=== PATIENT | female | born 1995 | race Caucasian/White ===

== ENCOUNTER 2018-12-12 08:18 | Inpatient (IN) ==
[2018-12-12] MEDS ORDERED: Ondansetron ODT 4 MG TAB.RAPDIS SL PRN (08:57)
[2018-12-12 09:06] LABS: Amphetamine Screen,Urine Negative ng/mL (Cutoff=1000); Barbiturate Screen,Urine Negative ng/mL (Cutoff=200); Benzodiazepines Screen,Urine Negative ng/mL (Cutoff=200); Cannabinoid Screen,Urine Negative ng/mL (Cutoff = 50); Cocaine Screen,Urine Negative ng/mL (Cutoff= 300); Opiate Screen,Urine Negative ng/mL (Cutoff=300); Phencyclidine Screen,Urine Negative ng/mL (Cutoff=25)
[2018-12-12] MEDS ORDERED: Ringers Solution, Lactated 1,000 ML IVC ONE (09:55)
[2018-12-12] MEDS ORDERED: Ringers Solution, Lactated 1,000 ML ONE (09:56)
[2018-12-12] MEDS ORDERED: Famotidine 20 MG/2 ML VIAL IVP PRN ×2 (10:57→17:32)
[2018-12-12] MEDS ORDERED: Ondansetron 4 MG/2 ML VIAL IVP PRN (10:57)
[2018-12-12] MEDS ORDERED: Metoclopramide 10 MG/2 ML VIAL IVP PRN (10:57)
[2018-12-12] MEDS ORDERED: Naloxone 0.4 MG/ML INJ IVP PRN (10:57)
[2018-12-12] MEDS ORDERED: Ringers Solution, Lactated 1,000 ML IVC SCH (11:00)
[2018-12-12] MEDS ORDERED: Oxytocin 20 units/ LR 1000 mL 20 UNIT/1,000 ML BAG IVC SCH (11:00)
[2018-12-12] MEDS ORDERED: Acetaminophen 325 MG TABLET PO PRN (11:01)
[2018-12-12 11:12] LABS: Basophils % 0.2 %; Eosinophils % 0.2 %; Hematocrit 32.8 % (35.3-44.9); Immature Granulocytes % 0.6 % (0-4); Lymphocytes # 0.7 K/mcL (0.6-4.6); Lymphocytes % 5.2 %; Mean Corpuscular HGB Conc 30.5 g/dL (31.6-35.5); Mean Corpuscular Hemoglobin 26.8 pg (28.0-33.3); Mean Corpuscular Volume 87.9 fL (83.0-100.0); Mean Platelet Volume 10.3 fL (9.4-12.4); Monocytes # 0.7 K/mcL (0.0-1.3); Monocytes % 5.1 %; Neutrophils # 12.5 K/mcL (1.6-8.9); Platelet Count 335 K/mcL (140-400); Red Blood Count 3.73 M/mcL (3.82-4.97); Red Cell Distribution Width 13.9 % (11.5-14.5); Segmented Neutrophils % 88.7 %
[2018-12-12] MEDS: miSOPROStol 25 MCG TABLET PO PRN ×2 (11:42→16:09)
--- NOTE | 2018-12-12 12:15 | OB/GYN History & Physical ---
Date of Encounter: 12/12/18 Time of Encounter: 12:09 Assessment and Plan (1) 39 weeks gestation of Current visit: Yes Status: Acute Admit for IOL at 39w4d due to tachycardia. Dr. Leblanc consulted for plan of care. (2) tachycardia Current visit: Yes Status: Acute Admit for IOL (3) Blood type O- Current visit: Yes Status: Acute Collect cord blood at time of delivery History of Present Illness Chief complaint: IOL at 39w4d HPI: Ms. Santillan is a 23 year old female at 39w4d who presented to L&D with complaint of contractions, nausea, vomiting and diarrhea since yesterday. She reports positive movement, denies vaginal leakage and bleeding and reports irregular contractions. Upon admission, the FHR was 160 bpm but has increased to a baseline of 170-[address] Leblanc was on the unit and consulted for plan of care. Advised to admit for induction of labor due to term and tachycardia. She receives her care with Dr. Camarena and has an uncomplicated . Blood Type O negative GBS negative HBSAG negative HIV negative RPR negative Hep C Negative Rubella Equivocal Varicella Immune Past Med Surg Social Fam HX - Past Medical History Medical history: kidney stones Psychiatric history: no psych history - Past Surgical History Surgical History: no surgical history - Social History Smoking Status: Never smoker Alcohol use: none Drug use: none - Family History Mother Adopted: No Family Member Ethnicity: Non- Living Status: Still Living Hx Family Cardiac Disorders: No Hx Family Respiratory Disorders: No Hx Family Cancer: No Hx Family GI Disorders: No Hx Family Genitourinary Disorders: No Hx Family Endocrine Disorder: No Hx Family Musculoskeletal Disorders: No Hx Family Neuromuscular Disorders: No Hx Family Neurologic Disorders: No Hx Family HEENT Disorders: No Hx Family Autoimmune Disorders: No Hx Family Reproductive Disorders: No Hx Family Psychosocial Disorders: No Hx Family Medical Disorders: No Obstetrical History - Pregnancies : 1 Para: 0 Term: 0 : 0 Ab's: 0 Livin Medications and Allergies No Known Home Drugs 12/12/18 [History] Allergy/AdvReac Type Severity Reaction Status Date / Time No Known Allergies Allergy Verified 03/31/16 00:34 Exam - Constitutional Constitutional: well developed, well nourished, no acute distress, average body habitus - HEENT HEENT: Normocephaly - Neck Neck exam: full ROM, normal inspection - Lungs Respiratory exam: CTAB - Cardiovascular Cardiovascular exam: RRR, +S1, +S2 - Breasts Breast: bilateral: normal - Abdomen Abdomen: Present: bowel sounds normal, gravid, non tender - Extremities Extremities exam: full ROM, normal capillary refill, normal inspection - Vulva Vulva: bilateral: normal - Vagina Vagina: Present: normal moisture - Cervix Dilation: 1 Effacement: 80 (OB exam 12/11/18) Station: -3 - Uterus Uterus exam: Present: normal size - Comments Comments: Discussed IOL options with patient. Reviewed PO Cytotec, cervical ceron balloon. Patient is agreeable to the Cytotec at this time, she is unsure if she wants to do the ceron balloon yet. She may agree to that after an epidural is placed. She states she is very nervous about the thought of the ceron placement. Patient was encouraged to make the decision she feels is right for her and we can reassess after she receives an epidural. Results Result Diagrams: 12/12/18 10:10 Abnormal lab results WBC 14.1 K/mcL (4.3-11.1) H 12/12/18 10:10 RBC 3.73 M/mcL (3.82-4.97) L 12/12/18 10:10 Hgb 10.0 g/dL (11.5-15.4) L 12/12/18 10:10 Hct 32.8 % (35.3-44.9) L 12/12/18 10:10 MCH 26.8 pg (28.0-33.3) L 12/12/18 10:10 MCHC 30.5 g/dL (31.6-35.5) L 12/12/18 10:10 12.5 K/mcL (1.6-8.9) H 12/12/18 10:10 All other labs normal. - VTE Reasons for not Prescribing Prophylaxis: Treatment not Indicated - Low risk for VTE
[2018-12-12] MEDS: *HR* Nalbuphine 10 MG/ML AMPUL IVP PRN ×2 (16:05→18:13)
--- NOTE | 2018-12-12 16:25 | OB Labor Progress Note ---
Date of Encounter: 12/12/18 Time of Encounter: 16:19 Labor Progress Note - Subjective Subjective: Patient very anxious about pain associated with cervical ceron placement. Several family members at bedside for support. - Vital Signs Vital Signs: WNL, afebrile - Cervix Cervix: 1/80/-2 - Heart Tones Heart Tones: FHR 145 bpm, moderate variability, +15x15 accels, no decels. - [place]: Irregular contractions - Interventions Interventions: SVE Again discussed option of inserting cervical ceron. Patient is agreeable to try this once she has some pain medication to help her anxiety. Nubain given and cervical ceron inserted without difficulty. 60 mL sterile water instilled into uterine balloon, 20 mL sterile water instilled into vaginal balloon. Patient tolerated with minimal discomfort. - Plan Plan: Give second dose of Cytotec po Recheck in cervix in 4 hours. May have epidural when she requests Anticipate
[2018-12-12] MEDS ORDERED: Epidural Premix (fent/bupiv) 110 ML EP ONE (20:39)
[2018-12-12] MEDS ORDERED: *HR* FentaNYL (PF) 100 MCG/2 ML VIAL ONE (20:40)
[2018-12-12] MEDS ORDERED: Bupivacaine-MPF 0.25% 10 ML VIAL ONE (20:41)
--- NOTE | 2018-12-12 20:43 | OB Labor Progress Note ---
Date of Encounter: 12/12/18 Time of Encounter: 20:41 Labor Progress Note - Subjective Subjective: Patient is able to rest at intervals. She has multiple family members at bedside for support. - Vital Signs Vital Signs: WNL, pulse rate currently elevated due to patient being nervous about epidural placement. - Cervix Cervix: 5/50/-2 - Heart Tones Heart Tones: FHR 150 bpm, moderate variability, +15x15 accels, no decels. - B And E B And E: q 2 minutes - Interventions Interventions: SVE Cervical ceron removed, patient tolerated with minimal discomfort. - Plan Physician notified: Yes Physician notified details: Dr. Leblanc updated on SVE and ceron removal and plan to go ahead with epidural placement and AROM when appropriate. Plan: Place epidural for comfort AROM when appropriate Consider Pitocin augmentation if needed after epidural placement Anticipate
--- NOTE | 2018-12-12 21:37 | Anesthesia Evaluation PreOp ---
Date of Encounter: 12/12/18 Time of Encounter: 20:30 - Past History Planned Operation: labor epidural Cardiac History: Denies any Significant Hx Pulmonary History: Denies Any Significant HX, Other (former daily marijuana smoker, quit 1 year ago.) MELTER SUPERVISOR History: Denies Any Significant HX Other Medical History: Denies Any Significant HX Anesthesia History: No Prior Anesthetic Complications, Past Anesthesia (wisdom teeth, no problems. No FHAP.) Alcohol Use: none Drug use: none Medications and Allergies No Known Home Drugs 12/12/18 [History] Allergy/AdvReac Type Severity Reaction Status Date / Time No Known Allergies Allergy Verified 03/31/16 00:34 - Meds/Allergy Pre-op Review Medications Reviewed: Yes Allergies Reviewed: Yes Beta Blockers on Current Med List: No Anesthesia Results - Labs 12/12/18 10:10 Anesthesia Exam 136/78, 107, 18. FHTs 150s. Height: 5'6" Weight: 86kg NPO (# of Hours): >8 Pain Scale: 0 Pain Scale Used: Numeric (1 - 10) - HEENT Pupil (Motor): Pupils equal, EOMI Mallampati: II Teeth: Normal Oral Opening: Greater than 3 - MELTER SUPERVISOR LOC: Oriented MELTER SUPERVISOR Motor: Normal RUE, Normal LUE, Normal RLE, Normal LLE, Normal Face MELTER SUPERVISOR Sensory: Normal: RUE, LUE, RLE, LLE, Face - Cardiac Rhythm: Regular - Pulmonary Breath Sounds: bilateral Clear Respiratory Effort: Symmetrical Anesthesia Assess/Plan ASA Score: 2 Level of consciousness: Cooperative, Oriented, Tranquil Anesthetic Plan: Epidural Monitoring Plan: Standard Monitors
--- NOTE | 2018-12-12 21:43 | Anesthesia Procedures ---
Date of Encounter: 12/12/18 Time of Encounter: 20:44 Procedures: Anesthesia - Epidural/Spinal Patient ID/Chart reviewed: Yes Patient examined: Yes OB Eval: Gestational age: 39 OB Eval: : 1 OB Eval: Hx Para: 0 OB Eval: Dilated at (cm): 5 OB Eval: Contractions: Non-stressed pattern Consent Obtained: Yes Supplemental Oxygen: None/Room Air Site Prep: Aseptic Technique, Sterile prep and drape, Povidone-Iodine 1% Patient position: upright Local Anesthetic: Lidocaine 1% Amount of Local Anesthetic used: 5 Touhy Needle Gauge: 18 Touhy Needle Depth (cm): 6 Catheter Depth at Skin (cm): 18 Test Dose (1.5% Lido + Epi): Volume given (mls): 3 Test Dose Result: Negative Loading Dose: 0.25% Marcaine (mls): 8 Loading Dose: Fentanyl (mcg): 100 Loading Dose Administered: Thru Catheter Infusion Med: 0.125% Bupivacaine w/ 2 mcg/ml Fentanyl Infusion Rate (mls/hr): [address]: Tegaderm, Tape Interspace Used: L3-L4 Loss of Resistance (ANTIONE): Yes Blood: No CSF: No Paresthesia: No Vitals + FHT's: Vital Signs Time 2044 2102 2105 2110 2115 BP 136/78 135/81 130/74 132/76 127/76 Pulse 107 116 111 111 114 FHTs 150 150 150 150 150
--- NOTE | 2018-12-12 22:05 | OB Labor Progress Note ---
Date of Encounter: 12/12/18 Time of Encounter: 22:03 Labor Progress Note - Subjective Subjective: Patient completely comfortable with epidural in place. - Vital Signs Vital Signs: WNL, T:100.3 orally - Cervix Cervix: 5/50/-2 - Heart Tones Heart Tones: FHR 150 bpm, moderate variability, +15x15 accels, no decels. - [place]: Q 2 minutes - Interventions Interventions: SVE AROM for small amount of clear fluid - Plan Physician notified: Yes Physician notified details: Dr. Leblanc aware of updated SVE and SROM Plan: Continue expectant management Augment with Pitocin if needed Reposition frequently on peanut ball Anticipate
[2018-12-13] MEDS ORDERED: SODIUM CHLORIDE 0.9% IVPB SCH (02:00)
[2018-12-13] MEDS ORDERED: GENTAMICIN IVPB SCH (02:00)
[2018-12-13] MEDS: Ampicillin 2 GM in 0.9 % Sodium Chloride Mini Bag 100 ML IVPB SCH ×2 (02:03→13:57)
[2018-12-13] MEDS ORDERED: Gentamicin 300 MG in 0.9 % Sodium Chloride 100 ML IVPB SCH (02:15)
--- NOTE | 2018-12-13 02:55 | OB Labor Progress Note ---
Date of Encounter: 12/13/18 Time of Encounter: 02:51 Labor Progress Note - Subjective Subjective: Patient is comfortable with epidural in place. She is feeling very sickly at this time due to fever. - Vital Signs Vital Signs: BP WNL, P-101, T-102.2 - Cervix Cervix: 5-6/80/-1 - Heart Tones Heart Tones: FHR 185, moderate variability, +15x15 accels, no decels. - [place]: q2 minutes - Interventions Interventions: Due to maternal temp and tachycardia, intrapartum antibiotics (Ampicillin and Gentamicin) have been initiated. PO Tylenol was given at 0130 and temp has increased since that time. - Plan Physician notified: Yes Physician notified details: Dr. Leblanc updated on most current SVE and FHR of 185-190 bpm and that antibiotics have been started. She feels the tachycardia is due to the maternal fever and no new orders were received at this time. Plan: Continue antibiotics as ordered Tylenol as ordered for fever Continue Pitocin per protocol Frequent physician consultation Anticipate
[2018-12-13] MEDS ORDERED: Bupivacaine-MPF 0.25% 10 ML VIAL ONE (04:06)
[2018-12-13] MEDS ORDERED: *HR* FentaNYL (PF) 100 MCG/2 ML VIAL ONE ×3 (04:06→15:39)
[2018-12-13] MEDS ORDERED: Epidural Premix (fent/bupiv) 110 ML EP ONE (04:11)
[2018-12-13] MEDS ORDERED: Ibuprofen 800 MG TABLET PO ONE (04:21)
--- NOTE | 2018-12-13 04:29 | Event Note ---
Date of Encounter: 12/13/18 Time of Encounter: 04:22 Dr. Leblanc made aware of tachycardia in 180-190 bpm with no accels and temperature of 102.3 three hours after Tylenol. Order from Dr. Leblanc to give one dose of Motrin to try to bring the fever down and continue to monitor.
--- NOTE | 2018-12-13 06:50 | Anesthesia Progress Note ---
Date of Encounter: 12/13/18 Time of Encounter: 04:00 Anesthesia Note - Note Note: 12/13/18 06:41 called to LDR 8 for 10/10 pain with contractions. Upon inspection of epidural catheter, no migration noted. There was a moderate amount of bloody drainage that was not fresh. Dosed catheter with 8ml 0.25% bupivacaine with 100mcg fentanyl. Patient's BP stable throughout bolus. Patient's HR in one teens to 120 and FHTs in 180s. Nurses stated patient had flu like symptoms with temp of 102.3. Nurses notified dr. sharma Patient voiced relief of pain after bolus.
[2018-12-13] MEDS ORDERED: Aminoglycoside Consult 1 EACH MC ONE (08:30)
--- NOTE | 2018-12-13 08:46 | OB Labor Progress Note ---
Date of Encounter: 12/13/18 Time of Encounter: 08:44 Labor Progress Note - Subjective Subjective: Patient comfortable with epidural - Vital Signs Vital Signs: Temp 98.5 - Cervix Cervix: 6/100/+1 - Heart Tones Heart Tones: 145/moderate/-accels/- decels - [place]: 1-2 - Interventions Interventions: IUPC placed, Thick meconium noted - Plan Physician notified: Yes Physician notified details: Dr. Taylor aware and in agreement with plan Plan: Continue pitocin per policy Frequent repositioning with peanut ball continue ATB Tylenol PRN Anticipate
[2018-12-13] MEDS ORDERED: Epidural Premix (fent/bupiv) 110 ML EP SCH (10:45)
--- NOTE | 2018-12-13 12:04 | OB Labor Progress Note ---
Date of Encounter: 12/13/18 Time of Encounter: 12:02 Labor Progress Note - Subjective Subjective: Comfortable with epidural - Cervix Cervix: 6+100/+1 In anterior cervical lip noted Very dark green thick meconium noted - Heart Tones Heart Tones: 145/minimal/-accels/variable and early decels - [place]: 1-2 - Plan Physician notified: Yes Physician notified details: Dr. Taylor updated about meconium and current cervical exam. In agreement with plan of care Plan: Continue Pitocin per policy Frequent repositioning with peanut ball Due to swollen anterior cervical lip will give Benadryl 25 mg by mouth anticipate
[2018-12-13] MEDS ORDERED: Chloroprocaine/PF 20 ML VIAL INFILT ONE ×2 (15:08→15:39)
[2018-12-13] MEDS ORDERED: *HR* Oxytocin 10 UNIT/ML VIAL IM ONE ×2 (15:09→16:05)
[2018-12-13] MEDS ORDERED: Azithromycin 500 MG in D5% in Water 250 ML IVPB ONE (15:18)
[2018-12-13] MEDS ORDERED: Ringers Solution, Lactated 1,000 ML ONE ×2 (15:19→16:04)
[2018-12-13] MEDS ORDERED: *HR* Propofol 200 MG/20 ML VIAL IVP ONE (15:27)
[2018-12-13] MEDS ORDERED: Lidocaine -MPF 2% 5 ML VIAL ONE (15:28)
[2018-12-13] MEDS ORDERED: *HR* Succinylcholine 200 MG/10 ML VIAL IVP ONE (15:28)
[2018-12-13] MEDS ORDERED: *HR* Morphine Sulfate/PF 10 MG/10 ML AMPUL ONE (15:39)
[2018-12-13] MEDS ORDERED: Dexamethasone 4 MG/ML VIAL ONE (15:53)
[2018-12-13] MEDS ORDERED: Ondansetron 4 MG/2 ML VIAL ONE (15:53)
[2018-12-13] MEDS ORDERED: *HR* HYDROmorphone (PF) 1 MG/ML SYRINGE IVP PRN (15:54)
[2018-12-13] MEDS ORDERED: Acetaminophen IV 1,000 MG/100 ML INFUS..BTL IVPB ONE (15:54)
[2018-12-13] MEDS ORDERED: *HR* Meperidine 25 MG/ML SYRINGE IVP PRN (15:54)
[2018-12-13] MEDS ORDERED: Ondansetron 4 MG/2 ML VIAL IVP PRN ×2 (15:54→20:01)
--- NOTE | 2018-12-13 16:41 | OB Labor Progress Note ---
Date of Encounter: 12/13/18 Time of Encounter: 14:40 Labor Progress Note - Subjective Subjective: pt comfortable with epidural - Cervix Cervix: 7/100/+1 thick dark meconium noted. - Heart Tones Heart Tones: 170/minimal/late early decels - Plan Physician notified: Yes Plan: VE and pt repositioned, discussed continuing labor and possible , increasing tachycardia noted, increase in maternal temp to 99.[address] Taylor decision made for delivery. Plan of care discussed with patient and family, patient in agreement. Care of patient transferred to Dr. Taylor at this time.
--- NOTE | 2018-12-13 16:47 | OB/GYN Procedure Note ---
Section - Date of procedure: 12/13/18 Preop diagnosis: category 2 FHT tracing Post-op diagnosis: same Procedure: section, primary low transverse Surgeon: Renetta Linn Blood Loss: 500 Was there an engineer third assistant present: Yes Environmental Laboratory Technician: Pilo Dillon Bleach Maker: Shawn Lux Anesthesia Type: Epidural section complications: none Disposition: L&D Recovery Room Specimens: Placenta - Infant (s) A Delivery Date: 12/13/18 Delivery Time: 15:34 Presentation: vertex Gender: Male Viability: Viable Pounds: 9 Ounces: 6 Gram Weight: 4.26 kg at 1 minute: 9 at 5 minutes: 9 Specimens collected: venous cord gases (pH 7.23), arterial cord gases (pH 7.22) Placenta: spontaneous Cord: 3 umbilical vessels - Narrative Narrative: Patient was induction of labor secondary to tachycardia and maternal temperature on December 12, 2018. She progressed to 5-6 cm this AM. Throughout today she has labored with IUPC in place and continued to increase the Pitocin. At the time of surgery the heart rate was tachycardic with minimal variability, category 2. She was 6-7 cm dilated. Discussion with the patient that with this return to tachycardia with minimal variability and already thick meconium concern for intolerance of labor. Informed consent obtained for primary c- section and anesthesia and nursery notified. Patient was taken to the operative suite and epidural was bolused. She was then prepped and draped in normal sterile fashion in the dorsal supine position. Timeout was then performed. Additonal antibiotics were given at room time. SCDs are on and active. Epidural anesthesia was tested and found to not be adequate for surgery. She then underwent general anesthesia. Pfannenstiel skin incision is then made and carried through to underlying layer of fascia with the Bovie. The fascia was then incised in the midline and incision extended laterally with the Rushing scissors. The fascia was tented up and dissected off the rectus muscles sharply. The rectus muscles were in the midline and the peritoneum was tented up and entered sharply with the Metzenbaum scissors. The peritoneal incision was then extended bluntly. The bladder blade was then inserted and the vesicouterine peritoneum was identified. A low transverse uterine incision was then made above the bladder reflection. The infant vertex was brought to the incision and the was delivered using fundal pressure. There was no nuchal cord. Cord was clamped and cut. Infant was handed to waiting nursery staff. Placenta delivered spontaneously complete and intact with a three-vessel cord. The uterus was cleared of all clots and debris using moist laparotomy sponge. The uterine incision was then closed using 0 Vicryl in a running locked fashion. A second layer of the same suture was used to obtain excellent hemostasis. The abdomen was then cleared of all clots and debris using copious irrigation. The fascial incision was then closed using 0 Vicryl in a running fashion. The skin was closed using 4-0 Vicryl in a subcuticular fashion. Steri-Strips and sterile dressing are then placed. Mother and taken to recovery in stable condition.
[2018-12-13] MEDS ORDERED: Rho Immune Globulin 1,500 UNIT SYRINGE IM ONE ×2 (16:49→20:01)
[2018-12-13] MEDS ORDERED: Acetaminophen 325 MG TABLET PO PRN (20:01)
[2018-12-13] MEDS ORDERED: Sennosides 8.6 MG TABLET PO PRN (20:01)
[2018-12-13] MEDS ORDERED: Oxytocin 20 units/ LR 1000 mL 20 UNIT/1,000 ML BAG IVC SCH ×2 (20:01)
[2018-12-13] MEDS ORDERED: Metoclopramide 10 MG/2 ML VIAL IVP PRN (20:01)
[2018-12-13] MEDS ORDERED: *HR* OxyCODONE Immed Rel 5 MG TABLET PO PRN (20:01)
[2018-12-13] MEDS ORDERED: Simethicone 80 MG TAB.CHEW PO PRN (20:01)
--- NOTE | 2018-12-13 20:27 | Anesthesia Evaluation Post Op ---
Date of Encounter: 12/13/18 Time of Encounter: 20:26 - Vital Signs Vital Signs: Vital Signs/O2 Sat, Most Current Temp Pulse Resp BP Pulse Ox 98.5 F 107 16 120/74 94 12/13/18 20:00 12/13/18 20:00 12/13/18 20:00 12/13/18 20:00 12/13/18 20:00 - Lungs Lungs: Clear Ascult./Percussion - Airway Airway: Non-obstructed - Cardiovascular Regular Rate - Mental Status Mental Status: Alert & Oriented, Answers Appropriately - Pain Pain Scale: 2 Pain Scale used: Numeric (1 - 10) - Nausea Vomiting Nausea Vomiting: Not Present - Hydration Hydration: NPO, Joshua catheter - Discharge PostOp Status: Transfer Patient to floor (stable, VSS, no anesthetic complications)
[2018-12-13] MEDS: cephALEXin 500 MG CAPSULE PO SCH (20:30)
[2018-12-13] MEDS: Ibuprofen 600 MG TABLET PO PRN (20:38)
[2018-12-14] MEDS: *HR* OxyCODONE/APAP 5/325 TABLET PO PRN ×3 (03:28→23:33)
[2018-12-14 03:30] LABS: Hematocrit 29.2 % (35.3-44.9); Mean Corpuscular HGB Conc 30.8 g/dL (31.6-35.5); Mean Corpuscular Hemoglobin 26.4 pg (28.0-33.3); Mean Corpuscular Volume 85.6 fL (83.0-100.0); Mean Platelet Volume 9.7 fL (9.4-12.4); Platelet Count 310 K/mcL (140-400); Red Blood Count 3.41 M/mcL (3.82-4.97); Red Cell Distribution Width 14.2 % (11.5-14.5)
[2018-12-14 03:47] LABS: BUN/Creatinine Ratio 10 (6-26); Blood Urea Nitrogen 6 mg/dL (6-20); eGFR For Non-African Americans > 60 (> 60)
[2018-12-14 04:14] LABS: Lymphocytes # 0.7 K/mcL (0.6-4.6); Monocytes # 1.3 K/mcL (0.0-1.3); Neutrophils # 30.8 K/mcL (1.6-8.9); Platelet Estimate Normal (Normal)
[2018-12-14] MEDS: Prenatal Vit/FA 1 EACH TABLET PO SCH (08:19)
[2018-12-14] MEDS: cephALEXin 500 MG CAPSULE PO SCH ×3 (08:20→22:16)
[2018-12-14] MEDS: Ibuprofen 600 MG TABLET PO PRN ×3 (08:20→22:16)
[2018-12-14] MEDS: Azithromycin 250 MG TABLET PO SCH (08:20)
--- NOTE | 2018-12-14 09:16 | OB/GYN Progress Note ---
Date of Encounter: 12/14/18 Time of Encounter: 09:14 - Assessment and Plan (1) S/P section Current Visit: Yes Status: Acute POD 1 S/p c for tachycardia and failure to progress; recovering well and tolerating regular diet thus plan for discharge tomorrow - ceron removed - continue pain management and supportive care - continue wound care - ambulate prn (2) Leukocytosis Current Visit: Yes Status: Acute WBC 32.8 from 14.1 with fever resolved. Concerned for chorioaminotisis v more likely gastrointeritis with symptoms of nausa, vomiting and diarrhea resolved Received amp and gentamycin during labor and preop azithromycin and ancef angy op - continue to monitor with cbc in am - afebrile since delivery - cont abx keflex day 2 of 7 and azithromycin day 2 of 7 - script on file - bld clx obtained to day Qualifiers: Leukocytosis type: unspecified Qualified Code(s): D72.829 - Elevated white blood cell count, unspecified (3) anemia Current Visit: Yes Status: Acute HgB of 9.0 from 10 acute blood loss anemia due to c/s on chronic anemia of unknown baseline; asymptomatic - continue iron supplement - monitor with labs in am (4) Breast feeding status of mother Current Visit: Yes Status: Acute Routine support as needed - breast pump script in chart Subjective - Subjective Principal diagnosis: s/p c section Interval history: 23 y/o F s/p c section for failure to progress POD 1 reports decrease in pain but light bleeding vaginal. She denies fever or nausea. Tolerating regular diet. Ceron removed this morning with out dysuria. Vitals reviewed and no new complaints. She is breast feeeding Patient reports: appetite normal, voiding normally, pain well controlled, ambulating normally : doing well, nursing well Objective - Vital Signs Latest vital signs: Vital Signs Temp Pulse Resp BP Pulse Ox 12/14/18 07:30 97.9 F 96 16 107/66 12/14/18 03:30 97.5 F L 90 16 111/73 97 12/13/18 22:20 98 F 107 14 113/73 93 12/13/18 21:05 98.0 F 102 16 128/67 96 12/13/18 20:30 98.1 F 106 18 114/70 94 12/13/18 20:00 98.5 F 107 16 120/74 94 Intake and Output 12/13/18 12/14/18 12/14/18 23:59 07:59 15:59 Intake Total 700 / 700 Output Total 1050 / 1050 625 / 1025 400 / 1025 Balance -1050 / -950 75 / -325 -400 / -325 Intake: Oral 700 / 700 Output: Urine 400 / 400 Catheter 1050 / 1050 625 / 625 Other: Weight 84.187 kg Patient Weight 12/14/18 23:59 Weight 84.187 kg - Exam Lungs: bilateral: normal Chest: Normal S1, Normal S2 Extremities: Present: normal. Absent: tenderness, edema Abdomen: Present: normal appearance, soft Incision: Present: dressed Uterus: Present: normal, firm Fundal Height: 0 (at u) - Labs Labs: Laboratory Results - last 24 hr 12/13/18 12/13/18 12/14/18 12:10 17:09 03:12 WBC RBC Hgb Hct MCV MCH MCHC RDW Plt Count MPV Seg Neutrophils % Band Neutrophils % Lymphocytes % Monocytes % Neutrophils # Lymphocytes # Monocytes # Platelet Estimate BUN 6 Creatinine 0.60 Est GFR ( Amer) > 60 Est GFR (Non-Af Amer) > 60 BUN/Creatinine Ratio 10 Random Gentamicin 1.6 Baby's Blood Type O RH POSITIVE Mother's Blood Type O RH NEGATIVE Rhogam Indicated YES 12/14/18 03:12 WBC 32.8 H* D RBC 3.41 L Hgb 9.0 L Hct 29.2 L MCV 85.6 MCH 26.4 L MCHC 30.8 L RDW 14.2 Plt Count 310 MPV 9.7 Seg Neutrophils % 82.0 Band Neutrophils % 12.0 H Lymphocytes % 2.0 Monocytes % 4.0 Neutrophils # 30.8 H Lymphocytes # 0.7 Monocytes # 1.3 Platelet Estimate Normal BUN Creatinine Est GFR ( Amer) Est GFR (Non-Af Amer) BUN/Creatinine Ratio Random Gentamicin Baby's Blood Type Mother's Blood Type Rhogam Indicated - Attending Attestation I examined this patient and my medical decision making was reviewed with the resident physician. I agree with the documented findings, disposition, and treatment plan as described above. Patient is status post section day 1, meeting postoperative milestones, assessment within normal limits as documented by resident physician
[2018-12-14 13:01] LABS: Mean Platelet Volume 9.6 fL (9.4-12.4); Red Cell Distribution Width 14.3 % (11.5-14.5)
[2018-12-14 13:02] LABS: Hematocrit 28.6 % (35.3-44.9); Hemoglobin 9.1 g/dL (11.5-15.4); Mean Corpuscular HGB Conc 31.8 g/dL (31.6-35.5); Mean Corpuscular Volume 84.9 fL (83.0-100.0); Nucleated Red Blood Cells 0.1 /100 WBC (0); Platelet Count 326 K/mcL (140-400); Red Blood Count 3.37 M/mcL (3.82-4.97)
[2018-12-14 13:46] LABS: Platelet Estimate Normal (Normal)
[2018-12-14 13:47] LABS: Monocytes # 0.5 K/mcL (0.0-1.3); Neutrophils # 24.3 K/mcL (1.6-8.9)
[2018-12-14] MEDS ORDERED: Rho Immune Globulin 1,500 UNIT SYRINGE IM ONE (21:04)
[2018-12-15] MEDS: Ibuprofen 600 MG TABLET PO PRN ×4 (05:29→23:15)
[2018-12-15] MEDS: *HR* OxyCODONE/APAP 5/325 TABLET PO PRN ×3 (06:26→23:15)
[2018-12-15] MEDS: cephALEXin 500 MG CAPSULE PO SCH ×5 (08:28→20:45)
[2018-12-15] MEDS: Prenatal Vit/FA 1 EACH TABLET PO SCH (08:28)
[2018-12-15] MEDS: Azithromycin 250 MG TABLET PO SCH (08:28)
--- NOTE | 2018-12-15 10:48 | OB/GYN Progress Note ---
Date of Encounter: 12/15/18 Time of Encounter: 10:46 - Assessment and Plan (1) Status post primary low transverse section Current Visit: Yes Status: Acute Meeting all day 2 milestones Continue routine pp care Anticipate d/c home tomorrow (2) Acute blood loss as cause of postoperative anemia Current Visit: Yes Status: Acute Continue iron supplementation daily (3) Breast feeding status of mother Current Visit: Yes Status: Acute support prn Subjective - Subjective Principal diagnosis: s/p PLTCS Interval history: Feeling well. Out of bed without dizziness. Some abdominal discomfort-using binder. Cramping minimal, using ibuprofen and Percocet. every 2- 3 hours. Some nipple soreness. Voiding without difficulty. Passing flatus, no BM yet. Tolerating clear liquid diet. Patient reports: appetite normal, voiding normally, pain well controlled, ambulating normally : doing well, nursing well Objective - Vital Signs Latest vital signs: Vital Signs Temp Pulse Resp BP Pulse Ox 12/15/18 07:30 98.3 F 82 16 115/74 12/15/18 00:53 97.8 F 74 16 118/77 97 12/14/18 22:15 98.2 F 83 16 113/76 96 12/14/18 15:17 97.6 F 81 16 102/66 12/14/18 11:44 97.5 F L 93 16 115/76 Intake and Output 12/14/18 12/15/18 12/15/18 23:59 07:59 15:59 Intake Total 200 / 1600 400 / 640 240 / 640 Output Total 500 / 1675 700 / 1500 800 / 1500 Balance -300 / -75 -300 / -860 -560 / -860 Intake: Oral 200 / 1600 400 / 640 240 / 640 Output: Urine 500 / 1050 700 / 1500 800 / 1500 Other: Meal Dinner Breakfast Percent of Meal Consumed 90% 100% Weight 83.688 kg Patient Weight 12/15/18 23:59 Weight 83.688 kg - Exam Lungs: bilateral: normal Chest: Normal S1, Normal S2 Extremities: Present: normal Abdomen: Present: normal appearance, soft Incision: Present: normal, dry, intact, dressed Uterus: Present: normal, firm Fundal Height: 1 (below and midline) - Labs Labs: Laboratory Results - last 24 hr 12/14/18 12:50 WBC 25.8 H RBC 3.37 L Hgb 9.1 L Hct 28.6 L MCV 84.9 MCH 27.0 L MCHC 31.8 RDW 14.3 Plt Count 326 MPV 9.6 Seg Neutrophils % 88.0 Band Neutrophils % 6.0 H Lymphocytes % 4.0 Monocytes % 2.0 Neutrophils # 24.3 H Lymphocytes # 1.0 Monocytes # 0.5 Nucleated RBCs/100 WBC 0.1 H Platelet Estimate Normal
[2018-12-16] MEDS: Ibuprofen 600 MG TABLET PO PRN (06:58)
[2018-12-16 08:04] VITALS: BP 124/85
[2018-12-16] MEDS: Prenatal Vit/FA 1 EACH TABLET PO SCH (08:36)
[2018-12-16] MEDS: Azithromycin 250 MG TABLET PO SCH (08:37)
[2018-12-16] MEDS: cephALEXin 500 MG CAPSULE PO SCH (08:37)
[2018-12-16] MEDS ORDERED: Measles/Mumps/Rubella Vacc 0.5 ML VIAL SQ ONE (10:19)
--- NOTE | 2018-12-16 10:23 | Discharge Summary ---
Date of Encounter: 12/16/18 Time of Encounter: 10:21 - Discharge Diagnosis (1) S/P section Priority: Primary Status: Acute Comments: Patient meeting day one milestones. Pain well-controlled with prescribed medications. Voiding without difficulty, tolerating regular diet, bleeding light. No bowel movement yet. Anticipate discharge today (2) anemia Priority: Secondary Status: Acute Comments: Continue ferrous sulfate daily (3) Breast feeding status of mother Priority: Secondary Status: Acute Comments: support as needed. Breast pump prescription provided - Discharge Medications Prescriptions: New Breast Pump [BREAST PUMP] 1 each .ROUTE AD #1 each Sennosides/Docusate Sodium [Docusate Sodium-Senna Tablet] 1 each PO DAILY #60 tablet Ibuprofen [Ibu] 600 mg PO Q6HR #60 tablet Cephalexin [Keflex] 500 mg PO BID 5 Days #10 capsule Oxycodone HCl/Acetaminophen [Percocet 5-325 mg Tablet] 1 each PO Q6HR PRN 7 Days #28 tablet PRN Reason: Pain Azithromycin [Zithromax Tri-Omar] 500 mg PO DAILY 5 Days #5 tablet Azithromycin [Zithromax] 500 mg PO DAILY tablet cephALEXin [Keflex] 500 mg PO QID capsule Ferrous Sulfate 325 mg PO DAILY #30 tablet Acetaminophen [Tylenol] 325 mg PO Q6HR PRN tablet PRN Reason: Fever/Pain Ibuprofen [Motrin] 600 mg PO Q6HR PRN tablet PRN Reason: Cramping Docusate [Colace] 100 mg PO BID capsule Metoclopramide [Reglan] 10 mg IVP ONCE PRN vial PRN Reason: Nausea And Vomiting Simethicone [Gas-X] 80 mg PO TID PRN tab.chew PRN Reason: Dyspepsia Home Medications: Azithromycin [Zithromax Tri-Omar] 500 mg PO DAILY 5 Days #5 tablet 12/14/18 [Rx] Breast Pump [BREAST PUMP] 1 each .ROUTE AD #1 each 12/14/18 [Rx] Cephalexin [Keflex] 500 mg PO BID 5 Days #10 capsule 12/14/18 [Rx] Ibuprofen [Ibu] 600 mg PO Q6HR #60 tablet 12/14/18 [Rx] Oxycodone HCl/Acetaminophen [Percocet 5-325 mg Tablet] 1 each PO Q6HR PRN 7 Days #28 tablet 12/14/18 [Rx] Sennosides/Docusate Sodium [Docusate Sodium-Senna Tablet] 1 each PO DAILY #60 tablet 12/14/18 [Rx] Acetaminophen [Tylenol] 325 mg PO Q6HR PRN tablet 12/16/18 [Rx] Azithromycin [Zithromax] 500 mg PO DAILY tablet 12/16/18 [Rx] Docusate [Colace] 100 mg PO BID capsule 12/16/18 [Rx] Ferrous Sulfate 325 mg PO DAILY #30 tablet 12/16/18 [Rx] Ibuprofen [Motrin] 600 mg PO Q6HR PRN tablet 12/16/18 [Rx] Metoclopramide [Reglan] 10 mg IVP ONCE PRN vial 12/16/18 [Rx] Simethicone [Gas-X] 80 mg PO TID PRN tab.chew 12/16/18 [Rx] cephALEXin [Keflex] 500 mg PO QID capsule 12/16/18 [Rx] Allergies/Adverse Reactions: Allergy/AdvReac Type Severity Reaction Status Date / Time No Known Allergies Allergy Verified 03/31/16 00:34 Data Procedures and tests throughout hospitalization: Laboratory Tests 12/12/18 12/12/18 12/13/18 08:45 10:10 12:10 WBC 14.1 H RBC 3.73 L Hgb 10.0 L Hct 32.8 L MCV 87.9 MCH 26.8 L MCHC 30.5 L RDW 13.9 Plt Count 335 MPV 10.3 Immature Gran % 0.6 Seg Neutrophils % 88.7 Band Neutrophils % Lymphocytes % 5.2 Monocytes % 5.1 Eosinophils % 0.2 Basophils % 0.2 Neutrophils # 12.5 H Lymphocytes # 0.7 Monocytes # 0.7 Eosinophils # 0.0 Basophils # 0.0 Nucleated RBCs/100 WBC Platelet Estimate BUN Creatinine Est GFR ( Amer) Est GFR (Non-Af Amer) BUN/Creatinine Ratio Random Gentamicin 1.6 Urine Opiates Screen Negative Ur Barbiturates Screen Negative Ur Phencyclidine Scrn Negative Ur Amphetamines Screen Negative U Benzodiazepines Scrn Negative Urine Cocaine Screen Negative U Marijuana (THC) Screen Negative Ur Drug Screen Interp See Below Screen Baby's Blood Type Mother's Blood Type Rhogam Indicated Rhogam Req for Mother 12/13/18 12/14/18 12/14/18 17:09 03:12 03:12 WBC 32.8 H* D RBC 3.41 L Hgb 9.0 L Hct 29.2 L MCV 85.6 MCH 26.4 L MCHC 30.8 L RDW 14.2 Plt Count 310 MPV 9.7 Immature Gran % Seg Neutrophils % 82.0 Band Neutrophils % 12.0 H Lymphocytes % 2.0 Monocytes % 4.0 Eosinophils % Basophils % Neutrophils # 30.8 H Lymphocytes # 0.7 Monocytes # 1.3 Eosinophils # Basophils # Nucleated RBCs/100 WBC Platelet Estimate Normal BUN 6 Creatinine 0.60 Est GFR ( Amer) > 60 Est GFR (Non-Af Amer) > 60 BUN/Creatinine Ratio 10 Random Gentamicin Urine Opiates Screen Ur Barbiturates Screen Ur Phencyclidine Scrn Ur Amphetamines Screen U Benzodiazepines Scrn Urine Cocaine Screen U Marijuana (THC) Screen Ur Drug Screen Interp Screen NEGATIVE Baby's Blood Type O RH POSITIVE Mother's Blood Type O RH NEGATIVE Rhogam Indicated YES Rhogam Req for Mother 1 12/14/18 12:50 WBC 25.8 H RBC 3.37 L Hgb 9.1 L Hct 28.6 L MCV 84.9 MCH 27.0 L MCHC 31.8 RDW 14.3 Plt Count 326 MPV 9.6 Immature Gran % Seg Neutrophils % 88.0 Band Neutrophils % 6.0 H Lymphocytes % 4.0 Monocytes % 2.0 Eosinophils % Basophils % Neutrophils # 24.3 H Lymphocytes # 1.0 Monocytes # 0.5 Eosinophils # Basophils # Nucleated RBCs/100 WBC 0.1 H Platelet Estimate Normal BUN Creatinine Est GFR ( Amer) Est GFR (Non-Af Amer) BUN/Creatinine Ratio Random Gentamicin Urine Opiates Screen Ur Barbiturates Screen Ur Phencyclidine Scrn Ur Amphetamines Screen U Benzodiazepines Scrn Urine Cocaine Screen U Marijuana (THC) Screen Ur Drug Screen Interp Screen Baby's Blood Type Mother's Blood Type Rhogam Indicated Rhogam Req for Mother Labs on day of discharge: Preliminary micro results at discharge 12/14/18 07:12 Blood Culture - Preliminary Peripheral Venipuncture Culture is incubating and being continuously monitored for growth. Final report to follow. 12/14/18 07:12 Blood Culture - Preliminary Peripheral Venipuncture Culture is incubating and being continuously monitored for growth. Final report to follow. Date of admission: 12/12/18 08:18 Primary care physician: Syeda Wells Discharging clinician: Alina Hand Anticipated date of discharge: 12/16/18 - Patient Status Disposition: Home, Self-Care Condition: Good Functional capacity at discharge: independent ambulation Overall status at discharge: patient is progressing back to baseline - Discharge Instructions Follow Up With: Syeda Wells MD [Primary Care Provider] - Renetta Taylor DO [Partnered Physician] - - Diet and Activity Activity: resume usual activities as tolerated Diet: regular diet Hospital Course Reason for admission: induction of labor, IUP at term, other ( tachycardia, maternal fever) Delivery: section Episiotomy: none Laceration: none Other procedures: none complications: none Discharge diagnosis: IUP at term delivered baby: male Hospital course: Date of procedure: 12/13/18 Preop diagnosis: category 2 FHT tracing Post-op diagnosis: same Procedure: section, primary low transverse Surgeon: Renetta Taylor Quantitated Blood Loss: 500 Was there an social science research assistant present: Yes Degreasing Solution Reclaimer: Pilo Dillon Solar Photovoltaic Designer: Shawn Lux Anesthesia Type: Epidural section complications: none Disposition: L&D Recovery Room Specimens: Placenta - Infant (s) Infant A Delivery Date: 12/13/18 Delivery Time: 15:34 Presentation: vertex Gender: Male Viability: Viable Pounds: 9 Ounces: 6 Gram Weight: 4.26 kg at 1 minute: 9 at 5 minutes: 9 Specimens collected: venous cord gases (pH 7.23), arterial cord gases (pH 7.22) Placenta: spontaneous Cord: 3 umbilical vessels - Narrative Narrative: Patient was induction of labor secondary to tachycardia and maternal temperature on December 12, 2018. She progressed to 5-6 cm this AM. Throughout today she has labored with IUPC in place and continued to increase the Pitocin. At the time of surgery the heart rate was tachycardic with minimal variability, category 2. She was 6-7 cm dilated. Discussion with the patient that with this r eturn to tachycardia with minimal variability and already thick meconium concern for intolerance of labor. Informed consent obtained for primary c- section and anesthesia and nursery notified. Patient was taken to the operative suite and epidural was bolused. She was then prepped and draped in normal sterile fashion in the dorsal supine position. Timeout was then performed. Additonal antibiotics were given at room time. SCDs are on and active. Epidural anesthesia was tested and found to not be adequate for surgery. She then underwent general anesthesia. Pfannenstiel skin incision is then made and carried through to underlying layer of fascia with the Bovie. The fascia was then incised in the midline and incision extended laterally with the Rushing scissors. The fascia was tented up and dissected off the rectus muscles sharply. The rectus muscles were in the midline and the peritoneum was tented up and entered sharply with the Metzenbaum scissors. The peritoneal incision was then extended bluntly. The bladder blade was then inserted and the vesicouterine peritoneum was identified. A low transverse uterine incision was then made above the bladder reflection. The infant vertex was brought to the incision and the was delivered using fundal pressure. There was no nuchal cord. Cord was clamped and cut. was handed to waiting nursery staff. Placenta delivered spontaneously complete and intact with a three-vessel cord. The uterus was cleared of all clots and debris using moist laparotomy sponge. The uterine incision was then closed using 0 Vicryl in a running locked fashion. A second layer of the same suture was used to obtain excellent hemostasis. The abdomen was then cleared of all clots and debris using copious irrigation. The fascial incision was then closed using 0 Vicryl in a running fashion. The skin was closed using 4-0 Vicryl in a subcuticular fashion. Steri-Strips and sterile dressing are then placed. Mother and infant taken to recovery in stable condition. Time Attestation: Total time spent providing and/or coordinating discharge services: Time Spent: Less than 30 minutes - VTE Reasons for not Prescribing Prophylaxis: Treatment not Indicated - Low risk for VTE Documentation of Mechanical Device: Intermittent pneumatic compression device Exam - Constitutional Vitals: Temp Pulse Resp BP Pulse Ox 97.7 F 70 16 124/85 97 12/16/18 08:04 12/16/18 08:04 12/16/18 08:04 12/16/18 08:04 12/15/18 20:50 General appearance IM: A&O X 3, pleasant, no acute distress, answers questions appropriately - Respiratory Respiratory exam: Present: CTAB - Cardiovascular Cardiovascular exam IM: Present: RRR, +S1, +S2 - GI/Abdominal GI/Abdominal exam IM: normal bowel sounds, soft Incision: normal - Rectal Rectal exam: deferred - External exam: normal external exam Uterine Tone: Firm Uterus Position: 2 Fingers Below Umbilicus, Midline - Extremities Exam Extremities exam IM: Present: full ROM, normal capillary refill, normal inspection - Neurological Exam Neurological exam: alert, normal gait, oriented X3
== END 2018-12-16 10:49 | disposition home or self-care (01) | DRG 787 ==
LOC: 1NENULAB → OBSVTOIN 08:18 → 1NENULAB 17:36 → 1NENUOBS 12-13 19:42
PROVIDERS: ADMIT Registered Nurse; ATTEND Registered Nurse